=== PATIENT | male | born 1995 | race Caucasian/White ===

== ENCOUNTER → 2018-01-16 | Outpatient (CLI) | payer OTHER | LOC: BMCIMAGING 11:21 | PROVIDERS: ATTEND Family Medicine | DX: M25.571 Pain in right ankle and joints of right foot (principal) ==

== ENCOUNTER → 2018-01-24 | Outpatient (CLI) | payer OTHER | LOC: BMCIMAGING 11:17 | PROVIDERS: ATTEND Family Medicine | DX: M79.675 Pain in left toe(s) (principal) ==